=== PATIENT | female | born 1980 | race Caucasian/White ===

== ENCOUNTER 2020-12-26 20:50 | Emergency (ER) | payer BC, OTHER ==
[2020-12-26] MEDS ORDERED: DIPHENHYDRAMINE 50 MG/ML VIAL ONE (22:32)
[2020-12-26] MEDS ORDERED: dexAMETHasone 10 MG/ML VIAL ONE (22:32)
[2020-12-26] MEDS ORDERED: METOCLOPRAMIDE 10 MG/2mL INJ ONE (22:32)
[2020-12-26] MEDS ORDERED: NA CHLORIDE 0.9% 1,000 ML ONE (22:33)
[2020-12-26] MEDS ORDERED: ONDANSETRON 4 MG/2 ML VIAL ONE (22:33)
[2020-12-26 22:51] LABS: Absolute Lymphocytes (CBC) 1.2 K/uL (0.7-4.9); Basophils % 0.6 % (0-1.3); Hematocrit 38.2 % (36.0-45.0); Lymphocytes % 13.5 % (15.3-44.8); MPV 7.8 fL (7.6-11.3); RBC Red Blood Cell Count 4.54 M/uL (3.86-4.86)
[2020-12-26 22:54] LABS: Protime INR 1.12
[2020-12-26 22:58] LABS: Potassium 3.8 mmol/L (3.5-5.1)
--- NOTE | 2020-12-27 00:33 | EDPHYS ---
Physician Documentation [facility] Name: Chandni Clark Age: 40 yrs Sex: Female : 1980 Arrival Date: 12/26/2020 Time: 20:54 Bed 28 Private MD: BEVERLY Physician Pop Michelle HPI: 12/26 21:45 This 40 yrs old Female presents to ER via Ambulatory with complaints of cp Headache, Nausea/Vomiting. 21:45 The patient complains of pain to the top of head and back of head. The patient cp describes the headache as constant. Onset: The symptoms/episode began/occurred this morning, at 05:00. Associated signs and symptoms: Pertinent positives: nausea, vomiting. 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 Flu vaccine is up to date. - Social history:: Smoking status: Patient denies any tobacco usage or history of. ROS: 22:00 Constitutional: Positive for poor PO intake, Negative for body aches, chills, fever. cp 22:00 Eyes: Positive for photophobia. cp 22:00 ENT: Negative for ear pain, sore throat, difficulty swallowing, difficulty handling secretions. 22:00 Respiratory: Negative for cough, shortness of breath, wheezing. 22:00 Abdomen/GI: Positive for nausea and vomiting, Negative for abdominal pain, diarrhea, constipation. 22:00 : Negative for urinary symptoms. 22:00 Neuro: Positive for headache, Negative for altered mental status, weakness. 22:00 All other systems are negative. Exam: 22:05 Constitutional: The patient appears in no acute distress, alert, awake, non-toxic, well cp developed, well nourished. 22:05 Head/Face: Normocephalic, atraumatic. cp 22:05 Eyes: Periorbital structures: appear normal, Pupils: equal, round, and reactive to light and accomodation, Extraocular movements: intact throughout, Conjunctiva: normal, no exudate, no injection, Sclera: no appreciated abnormality, Lids and lashes: appear normal, bilaterally. 22:05 ENT: External ear(s): are unremarkable, Ear canal(s): are normal, clear, TM's: dullness, bilaterally, Nose: is normal, Mouth: Lips: moist, Oral mucosa: moist, Posterior pharynx: Airway: no evidence of obstruction, patent. 22:05 Neck: ROM/movement: is normal, is supple, no meningismus, no nuchal rigidity. 22:05 Chest/axilla: Inspection: normal, Palpation: is normal, no crepitus, no tenderness. 22:05 Cardiovascular: Rate: normal, Rhythm: regular. 22:05 Respiratory: the patient does not display signs of respiratory distress, Respirations: normal, no use of accessory muscles, no retractions, labored breathing, is not present, Breath sounds: are clear throughout, no decreased breath sounds. 22:05 Abdomen/GI: Exam negative for discomfort, distension, guarding, Inspection: abdomen appears normal. 22:05 Neuro: Orientation: to person, place \T\ time. Mentation: is normal, Cerebellar function: is grossly normal, Motor: moves all fours, strength is normal, Sensation: is normal, Gait: is steady, at a normal pace, without difficulty. Vital Signs: 21:03 BP 127 / 81; Pulse 105; Resp 16 S; Temp 98.4(TE); Pulse Ox 99% on R/A; Weight 108.86 kg ca1 (R); Height 5 ft. 10 in. (177.80 cm) (R); Pain 10/10; 23:12 BP 124 / 71; Pulse 87; Resp 18; Pulse Ox 98% ; ak2 12/27 00:29 BP 129 / 71; Pulse 75; Resp 16; Pulse Ox 98% ; ak2 12/26 21:03 Body Mass Index 34.44 (108.86 kg, 177.80 cm) ca1 MDM: 12/26 21:40 Patient medically screened. cp 22:00 Differential diagnosis: intracerebral hemorrhage, meningitis, migraine, sinusitis, cp subarachnoid bleed, tension headache. 12/27 00:30 Data reviewed: vital signs, nurses notes, lab test result(s), radiologic studies, CT cp scan, I have discussed the patient's presentation/case with the attending Emergency Department Physician; and as a result, I will discharge patient. Counseling: I had a detailed discussion with the patient and/or guardian regarding: the historical points, exam findings, and any diagnostic results supporting the discharge/admit diagnosis, lab results, radiology results, to return to the emergency department if symptoms worsen or persist or if there are any questions or concerns that arise at home. Response to treatment: the patient's symptoms have markedly improved after treatment, VSS. Patient reports headache and nausea markedly improved. Will discharge to home for continued monitoring. 12/26 21:49 Order name: CBC with Diff cp 12/26 21:49 Order name: PT-INR; Complete Time: 23:12 cp 12/26 21:16 Order name: CT Head Brain wo Cont rn 12/26 21:49 Order name: Ptt, Activated; Complete Time: 23:12 cp 12/26 21:49 Order name: BMP; Complete Time: 23:12 cp 12/26 23:12 Interpretation: Normal except: CL 111; GLUC 119; GFR 64. cp 12/26 21:49 Order name: CBC with Automated Diff; Complete Time: 23:12 EDMS 12/27 00:26 Interpretation: Normal except: FIOR% 77.6; LYM% 13.5. cp 12/26 23:14 Order name: CT Head Angio cp 12/26 23:14 Order name: CT Neck Angio cp 12/26 21:49 Order name: Urine Test (obtain specimen) cp 12/26 21:49 Order name: Urine Dipstick-Ancillary (obtain specimen) cp Administered Medications: 12/26 22:30 Drug: Reglan (metoCLOPramide) 10 mg Route: IVP; Site: left antecubital; ak2 22:30 Drug: Zofran (Ondansetron) 4 mg Route: IVP; Site: left antecubital; ak2 22:30 Drug: Decadron - Dexamethasone 10 mg Route: IVP; Site: left antecubital; ak2 22:30 Drug: Benadryl (diphenhydrAMINE) 25 mg Route: IVP; Site: left antecubital; ak2 22:31 Drug: NS 0.9% 1000 ml Route: IV; Rate: 1 bolus; Site: left antecubital; ak2 12/27 00:48 Drug: TORadol - (ketorolac) 15 mg Route: IVP; Site: left antecubital; ak2 Disposition: 01:00 Chart complete. cp 01:40 Co-signature as Attending Physician, Pop Michelle MD. rn Disposition: 12/27/20 00:32 Discharged to Home. Impression: Migraine, unspecified. - Condition is Stable. - Discharge Instructions: Migraine Headache. - Prescriptions for Fiorinal 50- 325-40 mg Oral Capsule - take 1 capsule by ORAL route every 4 hours As needed - not to exceed 6 capsules per day; 20 capsule. promethazine 25 mg Oral Tablet - take 1 tablet by ORAL route every 6 hours As needed; 20 tablet. Phenergan 25 mg Rectal Suppository - insert 1 suppository by RECTAL route every 6 hours As needed; 12 suppository. - Medication Reconciliation Form, Thank You Letter, Antibiotic Education, Prescription Opioid Use, Work release form form. - Follow up: Private Physician; When: 2 - 3 days; Reason: Recheck today's complaints. - Problem is new. - Symptoms have improved. Signatures: Dispatcher [employer] EDMS Pop Michelle MD MD rn Page, Corey, PA PA cp Acob, Cheryl, RN RN ca1 Stephen Licea Corrections: (The following items were deleted from the chart) 00:33 00:32 12/27/2020 00:32 Discharged to Home. Impression: Headache. Condition is Stable. cp Forms are Medication Reconciliation Form, Thank You Letter, Antibiotic Education, Prescription Opioid Use. Follow up: Private Physician; When: 2 - 3 days; Reason: Recheck today's complaints. Problem is new. Symptoms have improved. cp 00:51 00:33 12/27/2020 00:32 Discharged to Home. Impression: Migraine, unspecified. Condition ak2 is Stable. Discharge Instructions: Migraine Headache. Prescriptions for Fiorinal 50-325-40 mg Oral Capsule - take 1 capsule by ORAL route every 4 hours As needed - not to exceed 6 capsules per day; 20 capsule, promethazine 25 mg Oral Tablet - take 1 tablet by ORAL route every 6 hours As needed; 20 tablet, Phenergan 25 mg Rectal Suppository - insert 1 suppository by RECTAL route every 6 hours As needed; 12 suppository. and Forms are Medication Reconciliation Form, Thank You Letter, Antibiotic Education, Prescription Opioid Use. Follow up: Private Physician; When: 2 - 3 days; Reason: Recheck today's complaints. Problem is new. Symptoms have improved. cp
--- NOTE | 2020-12-27 00:33 | ER ---
Nurse's Notes [facility] Name: Chandni Clark Age: 40 yrs Sex: Female : 1980 Arrival Date: 12/26/2020 Time: 20:54 Bed 28 Private MD: Diagnosis: Migraine, unspecified Presentation: 12/26 21:03 Chief complaint: Patient states: Woke up with headache this morning, took Aleve and ca1 Excedrin throughout the day, no relief. Now has nausea. Denies HX of Migraines. Coronavirus screen: Client denies travel out of the [place] in the last 14 days. headache, Client presents with at least one sign or symptom that may indicate coronavirus-19. Standard/surgical mask placed on the client. Provider contacted for isolation considerations. Ebola Screen: Patient negative for fever greater than or equal to 101.5 degrees Fahrenheit, and additional compatible Ebola Virus Disease symptoms Patient denies exposure to infectious person. Patient denies travel to an Ebola-affected area in the 21 days before illness onset. No symptoms or risks identified at this time. Initial Sepsis Screen: Does the patient meet any 2 criteria? No. Patient's initial sepsis screen is negative. Does the patient have a suspected source of infection? No. Patient's initial sepsis screen is negative. Risk Assessment: Do you want to hurt yourself or someone else? Patient reports no desire to harm self or others. Onset of symptoms was December 26, 2020. 21:03 Method Of Arrival: Ambulatory ca1 21:03 Acuity: ALEK 3 ca1 Triage Assessment: 12/27 00:30 Headache History: Denies prior headaches. General: Appears. General: Behavior is calm, ak2 cooperative. Pain: Denies pain. Neuro: No deficits noted. 00:30 Pain: Pain level that patient reports is acceptable is 3 out of 10 on a pain scale. ak2 Pain began suddenly, gradually, Also complains of. 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 Flu vaccine is up to date. - Social history:: Smoking status: Patient denies any tobacco usage or history of. Screenin:10 Abuse screen: Denies threats or abuse. Denies injuries from another. Nutritional ak2 screening: No deficits noted. Tuberculosis screening: No symptoms or risk factors identified. Fall Risk None identified. Vital Signs: 21:03 BP 127 / 81; Pulse 105; Resp 16 S; Temp 98.4(TE); Pulse Ox 99% on R/A; Weight 108.86 kg ca1 (R); Height 5 ft. 10 in. (177.80 cm) (R); Pain 10/10; 23:12 BP 124 / 71; Pulse 87; Resp 18; Pulse Ox 98% ; ak2 12/27 00:29 BP 129 / 71; Pulse 75; Resp 16; Pulse Ox 98% ; ak2 12/26 21:03 Body Mass Index 34.44 (108.86 kg, 177.80 cm) ca1 ED Course: 12/26 20:54 Patient arrived in ED. bp1 21:06 Triage completed. ca1 21:07 Arm band placed on right wrist. ca1 21:10 Stephen Licea is Primary Nurse. ak2 21:10 No apparent distress. ak2 21:10 Patient has correct armband on for positive identification. ak2 21:10 No provider procedures requiring assistance completed. ak2 21:39 CT Head Brain wo Cont In Process Unspecified. EDMS 21:40 Manoj Tay PA is PHCP. cp 21:40 Pop Michelle MD is Attending Physician. cp 23:47 CT Head Angio In Process Unspecified. EDMS 23:50 CT Neck Angio In Process Unspecified. EDMS 12/27 00:31 IV discontinued. ak2 Administered Medications: 12/26 22:30 Drug: Reglan (metoCLOPramide) 10 mg Route: IVP; Site: left antecubital; ak2 22:30 Drug: Zofran (Ondansetron) 4 mg Route: IVP; Site: left antecubital; ak2 22:30 Drug: Decadron - Dexamethasone 10 mg Route: IVP; Site: left antecubital; ak2 22:30 Drug: Benadryl (diphenhydrAMINE) 25 mg Route: IVP; Site: left antecubital; ak2 22:31 Drug: NS 0.9% 1000 ml Route: IV; Rate: 1 bolus; Site: left antecubital; ak2 12/27 00:48 Drug: TORadol - (ketorolac) 15 mg Route: IVP; Site: left antecubital; ak2 Outcome: 00:31 Discharged to home ambulatory. ak2 00:31 Condition: good 00:31 Discharge instructions given to patient. 00:32 Discharge ordered by . jayson 00:51 Patient left the ED. ak2 Signatures: Dispatcher [employer] EDMS Manoj Tay PA PA cp Acob, Cheryl, RN RN ca1 Juliana Hay Anthony ak2
[2020-12-27] MEDS ORDERED: KETOROLAC 30 MG/ML INJ ONE (01:01)
[2020-12-27 01:36] VITALS: TEMP 98.4
[2020-12-27 01:38] VITALS: O2SAT 98
[2020-12-27 01:39] VITALS: BP 129/71
--- NOTE | 2020-12-27 08:44 | RAD REPORT ---
EXAM DESCRIPTION: CT of the head without contrast CLINICAL HISTORY: HEADACHE COMPARISON: None available TECHNIQUE: Axial CT of the head obtained from the skull apex to the skull base without contrast. Thi s exam was performed according to our departmental dose-optimization program, which includes automate d exposure control, adjustment of the mA and/or kV according to patient size and/or use of iterative reconstruction technique. FINDINGS: No acute intracranial hemorrhage identified. No mass, mass effect, shift of the midline, a bnormal extra-axial fluid collection or CT evidence of acute ischemic change identified. The ventricu lar system is unremarkable. No acute abnormalities of the supratentorial white matter, basal gangli a, cerebellum, or brainstem. Cavum septum pellucidum The visualized paranasal sinuses and the mastoid air cells are relatively well aerated. No skull fr acture identified. Visualized orbits and globes are unremarkable. IMPRESSION: 1. No acute intracranial abnormality identified. Electronically signed by: Raoul Schmidt 12/26/2020 10:14 PM CDT Due to temporary technical issues with the PACS/Fluency reporting system, reports are being signed by the in house radiologist without review as a courtesy to ensure prompt reporting. The interpreting r adiologist is fully responsible for the content of the report.
--- NOTE | 2020-12-27 08:46 | RAD REPORT ---
EXAM DESCRIPTION: 1. CTA of the head with contrast. 2. CTA of the neck with contrast. CLINICAL HISTORY: 40 years, Female, HEADACHE COMPARISON: 12/26/2020 TECHNIQUE: Axial CTA images of the head and neck obtained following the uncomplicated intravenous ad ministration of iodinated contrast. 3-D/MIP reformatted images available. This exam was performed acc ording to our departmental dose-optimization program, which includes automated exposure control, adju stment of the mA and/or kV according to patient size and/or use of iterative reconstruction technique . FINDINGS: CTA head: In the anterior circulation, the intracranial internal carotid arteries have normal course and calibe r. The internal carotid arteries bifurcate into widely patent A1 and M1 segments of the anterior and middle cerebral arteries respectively. No evidence of flow-limiting stenosis, aneurysm, occlusion, or dissection in the anterior circulation. The anterior communicating artery is patent. In the posterior circulation, the intracranial vertebral arteries combine to form a widely patent bas ilar artery. The basilar artery bifurcates into widely patent P1 segments of the posterior cerebral a rtery. No evidence of stenosis, aneurysm, occlusion, or dissection in the posterior circulation. No definite acute intracranial abnormality identified. No acute abnormality of the osseous calvarium. Paranasal sinuses and mastoid air cells are well aerated. CTA NECK: The origin of the carotid and vertebral arteries visualized study. The fracture is not visualized. The visualized right common carotid artery is widely patent and bifurcates into widely patent interna l and external carotid arteries. 0% stenosis by NASCET criteria. No evidence of occlusion or dissecti on. The visualized left common carotid artery is widely patent and bifurcates into widely patent internal and external carotid arteries. 0% stenosis by NASCET criteria. No evidence of occlusion or dissectio n. The cervical vertebral arteries are widely patent throughout their course. No evidence of occlusion, stenosis, or dissection. No definite acute abnormalities in the neck soft tissues. No apical pneumothorax. No acute osseous ab normalities. IMPRESSION: 1. No evidence of flow-limiting stenosis, occlusion, or aneurysm in the intracranial a rterial circulation. 2. No evidence of stenosis, occlusion, or dissection involving the cervical carotid or vertebral ar teries. Electronically signed by: Raoul Schmidt 12/27/2020 12:15 AM CDT Due to temporary technical issues with the PACS/Fluency reporting system, reports are being signed by the in house radiologist without review as a courtesy to ensure prompt reporting. The interpreting r adiologist is fully responsible for the content of the report.
== END 2020-12-27 00:51 | disposition home or self-care (01) ==
LOC: ER 20:50
DX: G43.909 Migraine, unspecified, not intractable, without status migrainosus (principal)
CPT/HCPCS: 85025; 80048; 36415; 85610; 85730; 70450; 70496; 70498; 96375; 96374; 99283; Q9967; J2765; J1200; J1100; J7030; J2405